=== PATIENT | female | born 1985 | race Caucasian/White ===

== ENCOUNTER 2017-01-10 20:21 | Emergency (ER) | payer BC ==
[2017-01-10] MEDS ORDERED: 0.9 % SODIUM CHLORIDE 1,000 ML BAG IV ONE (21:35)
[2017-01-10] MEDS ORDERED: KETOROLAC 30 MG/ML VIAL IVP ONE (21:35)
[2017-01-10] MEDS ORDERED: ONDANSETRON HCL IV 4 MG/2 ML VIAL IV ONE (21:35)
[2017-01-10] MEDS ORDERED: DICYCLOMINE HCL 10 MG/ML AMPUL IM ONE (21:35)
--- NOTE | 2017-01-10 21:42 | Emergency Department Record ---
History of Present Illness - General Chief Complaint: Abdominal Pain Stated Complaint: BLOODY STOOLS/R ABD PAIN Time Seen by Provider: 01/10/17 21:30 Source: Patient Mode of Arrival: Ambulatory Limitations: No limitations - History of Present Illness Initial Comments: pt has been having crampy abd pain w diarrhea w blood and n/v all day.she states she had nothing to eat yesterday. she has no known exposures. she says there has been enough blood to turn the water red. the pain is intermittant. Onset/Timin -: Days(s) Location: R Flank, LLQ, RLQ Radiation: None Migration to: No migration Severity: Moderate Quality: Cramping Consistency: Intermittent Improves With: Nothing Worsens With: Eating Associated Symptoms: Vomiting - Related Data Patient : No Home Medications Medication Instructions Recorded Confirmed Last Taken Phentermine HCl [Phentermine HCl] 1 tab PO DAILY 01/10/17 01/10/17 Unknown Previous Rx's Medication Instructions Recorded Ciprofloxacin HCl [Cipro] 500 mg PO Q12HR #14 tablet 01/11/17 Allergies Allergy/AdvReac Type Severity Reaction Status Date / Time Penicillins Allergy SWELLING Verified 01/10/17 21:22 OF THE TONGUE Travel Screening - Travel/Exposure Within Last 30 Days Have you traveled within the last 30 days?: No - Travel/Exposure Within Last Year Have you traveled outside the [place] in the last year?: No - Additonal Travel Details Have you been exposed to anyone with a communicable illness?: No - Travel Symptoms Symptom Screening: None Review of Systems Reviewed: No additional complaints except as noted below Constitutional: Reports: As per HPI. Denies: Chills, Fever, Malaise, Night sweats, Weakness, Weight change Eyes: Reports: As per HPI. Denies: Eye discharge, Eye pain, Photophobia, Vision change ENT: Reports: As per HPI. Denies: Congestion, Dental pain, Ear pain, Epistaxis , Hearing loss, Throat pain Respiratory: Reports: As per HPI. Denies: Cough, Dyspnea, Hemoptysis, Stridor, Wheezes Cardiovascular: Reports: As per HPI. Denies: Arrhythmia, Chest pain, Dyspnea on exertion, Edema, Murmurs, Orthopnea, Palpitations, Paroxysmal nocturnal dyspnea, Rheumatic Fever, Syncope Endocrine: Reports: As per HPI. Denies: Fatigue, Heat or cold intolerance, Polydipsia, Polyuria Gastrointestinal: Reports: As per HPI. Denies: Abdominal pain, Constipation, Diarrhea, Hematemesis, Hematochezia, Melena, Nausea, Vomiting Genitourinary: Reports: As per HPI. Denies: Abnormal menses, Discharge, Dyspareunia, Dysuria, Frequency, Hematuria, Incontinence, Retention, Urgency Musculoskeletal: Reports: As per HPI. Denies: Arthralgia, Back pain, Gout, Joint swelling, Myalgia, Neck pain Skin: Reports: As per HPI. Denies: Bruising, Change in color, Change in hair/ nails, Lesions, Pruritus, Rash Neurological: Reports: As per HPI. Denies: Abnormal gait, Confusion, Headache, Numbness, Paresthesias, Seizure, Tingling, Tremors, Vertigo, Weakness Psychiatric: Reports: As per HPI. Denies: Anxiety, Auditory hallucinations, Depression, Homicidal thoughts, Suicidal thoughts, Visual hallucinations Hematological/Lymphatic: Reports: As per HPI. Denies: Anemia, Blood Clots, Easy bleeding, Easy bruising, Swollen glands Past Medical History - SOCIAL HISTORY Smoking Status: Current every day smoker Alcohol Use: Rare Drug Use: None - RESPIRATORY Hx Respiratory Disorders: No - CARDIOVASCULAR Hx Cardio Disorders: No - NEURO Hx Neuro Disorders: No - GI Hx GI Disorders: Yes Comment:: constipation - Hx Genitourinary Disorders: No Comment:: PMDD - ENDOCRINE Hx Endocrine Disorders: No - MUSCULOSKELETAL Hx Musculoskeletal Disorders: No - PSYCH Hx Psych Problems: Yes Hx Anxiety: Yes - HEMATOLOGY/ONCOLOGY Hx Hematology/Oncology Disorders: No Family Medical History Any Significant Family History?: No Physical Exam - General General Appearance: Alert, Oriented x3, Cooperative, Mild distress - Head Head exam: Normal inspection - Eye Eye exam: Normal appearance, PERRL, EOMI Pupils: Normal accommodation - ENT ENT exam: Normal exam, Mucous membranes moist, Normal external ear exam, Normal orophraynx Ear exam: Normal external inspection. negative: External canal tenderness Nasal Exam: Normal inspection. negative: Discharge, Sinus tenderness Mouth exam: Normal external inspection, Tongue normal Teeth exam: Normal inspection. negative: Dental caries Throat exam: Normal inspection. negative: Tonsillar erythema, Tonsillar exudate - Neck Neck exam: Normal inspection, Full ROM. negative: Tenderness - Respiratory Respiratory exam: Normal lung sounds bilaterally. negative: Respiratory distress - Cardiovascular Cardiovascular Exam: Regular rate, Normal rhythm, Normal heart sounds - GI/Abdominal GI/Abdominal exam: Soft, Normal bowel sounds, Tenderness - Rectal Rectal exam: Heme (+) stool, Normal inspection, Normal rectal tone - exam: Deferred - Extremities Extremities exam: Normal inspection, Full ROM, Normal capillary refill. negative: Tenderness - Back Back exam: Reports: Normal inspection, Full ROM. Denies: Muscle spasm, Rash noted, Tenderness - Neurological Neurological exam: Alert, CN II-XII intact, Normal gait, Oriented X3 - Psychiatric Psychiatric exam: Normal affect, Normal mood - Skin Skin exam: Dry, Intact, Normal color, Warm Course Vital Signs 01/10/17 21:03 Temperature 98.5 F Pulse Rate [ 84 Pulse Ox Probe] Respiratory 20 Rate Blood Pressure 117/82 [Left Arm] Pulse Ox 100 Medical Decision Making - Lab Data Result diagrams: 01/10/17 21:45 01/10/17 21:45 Disposition Disposition: Discharge Clinical Impression: Colitis, Dehydration, Hematochezia UTI (urinary tract infection) Qualifiers: Urinary tract infection type: acute cystitis Hematuria presence: without hematuria Qualified Code(s): N30.00 - Acute cystitis without hematuria Disposition: Home, Self-Care Condition: (1) Good Instructions: Urinary Tract Infection in Women (ED), Colitis (ED), Dehydration (ED), Rectal Bleeding (ED) Additional Instructions: follow up with family doctor. return sooner if worse. follow up with GI doctor Prescriptions: Ciprofloxacin HCl [Cipro] 500 mg PO Q12HR #14 tablet Forms: Patient Portal Access Quality - Quality Measures Quality Measures: N/A - Blood Pressure Screening Does Patient Have Any of the Following: No Blood Pressure Classification: Hypertensive Reading Systolic Measurement: 102 Diastolic Measurement: 90 Screening for High Blood Pressure: < Pre-Hypertensive BP, F/U Documented > [ [id number]] Pre-Hypertensive Follow-up Interventions: Follow-up with rescreen every year.
[2017-01-10 21:54] LABS: MEAN CELL VOLUME 89.3 fl (81-97); MEAN CORPUSCULAR HEMOGLOBIN 30.5 pg (27-33); MEAN CORPUSCULAR HGB CONC 34.1 g/dl (32-36); MEAN PLATELET VOLUME 9.9 fl (7.4-10.4); PLATELET COUNT 335 K/uL (130-400); RED BLOOD COUNT 4.59 M/uL (3.80-5.40); RED CELL DISTRIBUTION WIDTH 12.7 % (11.5-14.5); WHITE BLOOD COUNT W/O DIFF 13.5 K/uL (4.2-12.2)
[2017-01-10 21:56] LABS: URINE APPEARANCE CLEAR; URINE BILIRUBIN NEGATIVE (NEGATIVE); URINE BLOOD TRACE-I (NEGATIVE); URINE COLOR YELLOW; URINE GLUCOSE (UA) NEGATIVE (NEGATIVE); URINE KETONE TRACE (NEGATIVE); URINE LEUKOCYTE ESTERASE NEGATIVE (NEGATIVE); URINE NITRITE NEGATIVE (NEGATIVE); URINE PROTEIN NEGATIVE (NEGATIVE); URINE UROBILINOGEN 0.2 E.U./dL (0.20 - 1.00)
[2017-01-10 22:04] LABS: ALB/GLOB RATIO 1.4 (1.1-1.8); ALKALINE PHOSPHATASE 44 U/L (38-126); ALT/SGPT 33 U/L (9-52); AST/SGOT 20 U/L (14-36); BILIRUBIN,TOTAL 0.61 mg/dL (0.2-1.3); BLOOD UREA NITROGEN 9 mg/dL (7-17); CREATININE 0.6 mg/dL (0.52-1.04); EST GLOMERULAR FILTRATION RATE > 60 ml/min; GLUCOSE,RANDOM 99 mg/dL (70-110); LIPASE 45 U/L (23-300); TOTAL PROTEIN 6.8 gm/dL (6.3-8.2)
[2017-01-10 22:05] LABS: URINE BACTERIA 4+; URINE CALCIUM OXALATE CRYSTALS 2+ /hpf; URINE SQUAMOUS EPITHELIAL CELL 16 - 20 /hpf
[2017-01-11 00:51] LABS: URINE APPEARANCE CLOUDY; URINE BILIRUBIN SMALL (NEGATIVE); URINE BLOOD NEGATIVE (NEGATIVE); URINE COLOR YELLOW; URINE GLUCOSE (UA) NEGATIVE (NEGATIVE); URINE KETONE TRACE (NEGATIVE); URINE LEUKOCYTE ESTERASE NEGATIVE (NEGATIVE); URINE NITRITE POSITIVE (NEGATIVE); URINE PROTEIN TRACE (NEGATIVE); URINE UROBILINOGEN 0.2 E.U./dL (0.20 - 1.00)
[2017-01-11] MEDS ORDERED: 0.9 % SODIUM CHLORIDE 1,000 ML BAG IV ONE (01:03)
[2017-01-11 01:04] LABS: URINE RBC 0 - 2 (NONE SEEN)
[2017-01-11 01:05] LABS: URINE AMORPHOUS SEDIMENT 4+; URINE BACTERIA 3+; URINE CALCIUM OXALATE CRYSTALS FEW /hpf
[2017-01-11] MEDS ORDERED: CIPROFLOXACIN LACTATE/D5W 400 MG/200 ML BAG IVPB SCH (01:30)
--- NOTE | 2017-01-11 23:16 | CT SCAN REPORT ---
EXAM: CT SCAN ABDOMEN/PELVIS WO CONTRAST HISTORY: ABDOMINAL PAIN WITH CRAMPING. BLOODY DIARRHEA FOR TWO DAYS. TECHNIQUE: Routine helical CT examination of the abdomen and pelvis is performed without oral or intravenous contrast administration. COMPARISON: CT abdomen and pelvis with contrast dated 12/13/15. FINDINGS: The lung bases are clear and there is no pleural or pericardial effusion. The heart is nonenlarged. The liver, spleen, pancreas, adrenal glands, and right kidney are normal in appearance. There are several small nonobstructing calculi clustered in the lower pole of the left kidney, the pattern of which is not significantly changed. The left kidney is otherwise normal in appearance. The gallbladder is unremarkable and no biliary ductal dilatation is seen. No gross intraabdominal nor retroperitoneal lymphadenopathy. No pelvic mass, lymphadenopathy, or free pelvic fluid. The gallbladder is surgically absent. No intrinsic urinary bladder abnormality is seen, though evaluation is somewhat limited by incomplete distention. There is wall thickening of the colon from the mid ascending level to the distal transverse level suspicious for nonspecific colitis. There is mild associated stranding of adjacent mesenteric/omental fat. No other bowel wall thickening nor bowel dilatation is seen. The appendix is not visualized with confidence. No free intraperitoneal air. No lytic or blastic bone lesion. IMPRESSION: 1. WALL THICKENING OF THE COLON WITH MILD ADJACENT FAT STRANDING FROM THE MID ASCENDING LEVEL TO THE DISTAL TRANSVERSE LEVEL CONSISTENT WITH NONSPECIFIC COLITIS. THERE IS NO ASSOCIATED EXTRALUMINAL AIR NOR ABSCESS. 2. SMALL NONOBSTRUCTING CALCULI CLUSTERED IN THE LOWER POLE OF THE LEFT KIDNEY , STABLE. 3. SURGICAL ABSENCE OF THE UTERUS. JOB NUMBER: [id number] MTDD
== END 2017-01-11 02:48 | disposition home or self-care (01) ==
LOC: ER 20:21
DX: K52.9 Noninfective gastroenteritis and colitis, unspecified (principal); K92.1 Melena; E86.0 Dehydration; N30.00 Acute cystitis without hematuria
CPT/HCPCS: 99284 ×2; 96374; 96372; 96375; 96361; 83690; 80053; 81001; 85027; 74176; J0744; J1885; J2405; J7030